=== PATIENT | female | born 1960 | race African-American/Black ===

== ENCOUNTER 2020-02-18 09:31 | Emergency (ER) | payer MEDICARE, MEDICAID ==
[~2020-02-18] VITALS: Ht 167.6 cm; Wt 113.0 kg
[2020-02-18] MEDS ORDERED: LORAZEPAM 0.5MG TABLET PO ONE (10:00)
[2020-02-18 10:33] LABS: BASOPHILS % 0.7 % (0.0-2.0); EOSINOPHILS % 1.9 % (0.0-5.0); HEMATOCRIT. 38.9 % (36.0-48.0); HEMOGLOBIN. 12.6 g/dL (12.0-16.0); LYMPHOCYTES % 32.2 % (20.0-50.0); MEAN CORPUSCULAR HEMOGLOBIN 28.1 pg (28.0-32.0); MEAN CORPUSCULAR VOLUME 86.8 fL (81.0-99.0); MEAN PLATELET VOLUME 8.7 fl (7.4-10.4); MONOCYTES % 8.8 % (2.0-8.0); NEUTROPHILS % 56.4 % (40.0-76.0); PLATELET 207 x1000/uL (130-400); RED BLOOD CELL COUNT 4.48 mill/uL (4.2-5.4); RED CELL DISTRIBUTION WIDTH 15.9 % (11.6-14.6)
[2020-02-18 10:44] LABS: CHLORIDE 107 mEq/L (98-107)
[2020-02-18] MEDS ORDERED: ASPIRIN 325MG EC TABLET PO ONE (11:30)
[2020-02-18 16:45] VITALS: BP 158/58
== END 2020-02-18 17:08 | disposition short-term general hospital (02) ==
LOC: ER 09:52
DX: R07.89 Other chest pain (principal); R79.89 Other specified abnormal findings of blood chemistry; R00.2 Palpitations; I10 Essential (primary) hypertension; I25.10 Atherosclerotic heart disease of native coronary artery without angina pectoris; E78.00 Pure hypercholesterolemia, unspecified
CPT/HCPCS: 36415; 71045; 80053; 84484; 85025; 93005; 99285